=== PATIENT | female | born 1990 | race Caucasian/White ===

== ENCOUNTER 2020-05-08 11:52 | Outpatient (REF) | payer OTHER, SELFPAY ==
[2020-05-08 12:11] LABS: COVID-19 Test Negative (Negative)
== END 2020-05-08 11:53 | disposition home or self-care (01) ==
LOC: HO.LAB 11:52
PROVIDERS: Visit Provider Internal Medicine
DX: Z20.828 Contact with and (suspected) exposure to other viral communicable diseases (principal)
CPT/HCPCS: 87635

== ENCOUNTER 2020-05-14 10:15 | Outpatient (REF) | payer OTHER, SELFPAY ==
[2020-05-14 11:01] LABS: COVID-19 Test Negative (Negative)
== END 2020-05-14 10:16 | disposition home or self-care (01) ==
LOC: HO.LAB 10:15
PROVIDERS: Visit Provider Internal Medicine
DX: Z20.828 Contact with and (suspected) exposure to other viral communicable diseases (principal)
CPT/HCPCS: 87635

== ENCOUNTER 2020-05-18 16:19 | Outpatient (REF) | payer OTHER, SELFPAY ==
[2020-05-18 16:36] LABS: COVID-19 Test Negative (Negative)
== END 2020-05-18 16:20 | disposition home or self-care (01) ==
LOC: HO.LAB 16:19
PROVIDERS: Visit Provider Internal Medicine
DX: Z20.828 Contact with and (suspected) exposure to other viral communicable diseases (principal)
CPT/HCPCS: 87635

== ENCOUNTER 2020-05-20 14:42 | Outpatient (REF) | payer OTHER, SELFPAY ==
[2020-05-20 15:01] LABS: COVID-19 Test Negative (Negative)
== END 2020-05-20 14:43 | disposition home or self-care (01) ==
LOC: HO.LAB 14:42
PROVIDERS: Visit Provider Internal Medicine
DX: Z20.828 Contact with and (suspected) exposure to other viral communicable diseases (principal)
CPT/HCPCS: 87635

== ENCOUNTER 2021-05-31 11:54 | Outpatient (REF) | payer SELFPAY ==
[2021-05-31 13:37] LABS: Influenza A PCR NEGATIVE (Negative); Influenza B PCR NEGATIVE (Negative); Resp Syncy Virus RNA Qual PCR NEGATIVE (Negative); SARS COV2 PCR INHOUSE NEGATIVE (Negative)
== END 2021-05-31 11:55 | disposition home or self-care (01) ==
LOC: HO.LAB 11:54
PROVIDERS: Emergency Medicine Emergency Medical Services; PCP Pediatrics; Visit Provider Internal Medicine
DX: Z20.822 Contact with and (suspected) exposure to COVID-19 (principal)
CPT/HCPCS: 0241U; 36415; C9803

== ENCOUNTER → 2021-10-05 11:39 | Outpatient (BNVA) | payer BC, SELFPAY | PROVIDERS: PCP Pediatrics; Visit Provider Obstetrics & Gynecology | DX: Z13.89 Encounter for screening for other disorder (principal) ==

== ENCOUNTER 2021-10-08 08:21 | Outpatient (REF) | payer BC, SELFPAY ==
[2021-10-08 09:56] LABS: HCG Quantitative < 2 mIU/mL
== END 2021-10-08 08:22 | disposition home or self-care (01) ==
LOC: HO.LAB 08:21
PROVIDERS: PCP Pediatrics; Visit Provider Obstetrics & Gynecology
DX: N64.3 Galactorrhea not associated with childbirth (principal)
CPT/HCPCS: 36415; 84146; 84702

== ENCOUNTER → 2021-10-19 11:48 | Outpatient (BNVA) | payer BC, SELFPAY | PROVIDERS: PCP Pediatrics; Visit Provider Obstetrics & Gynecology | DX: Z13.89 Encounter for screening for other disorder (principal) ==